=== PATIENT | female | born 1945 | race Caucasian/White ===

== ENCOUNTER 2017-03-23 13:37 | Observation (INO) | payer OTHER ==
--- NOTE | 2017-03-23 14:16 | PDOC ---
History of Present Illness - General Chief Complaint: Syncope/Near Syncope Stated Complaint: SYNCOPE Time Seen by Provider: 03/23/17 14:07 History Source: Patient Exam Limitations: No Limitations - History of Present Illness Initial Comments: 03/23/17 14:35 This is a 71 yo F with pmh of HTN and HLD, who presents s/p syncopal episode. 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 she has not have anything to eat or drink in 24 hr. When it was her turn to speak she felt nervous. Shortly into her speech, she felt a syncopal prodrome of light headedness and darkening vision and stated the she was going to pass out, at which time someone caught her in her fall. she did not sustain trauma. When she woke up she was soaked in sweat, felt nauseous and experienced one episode of nbnb vomiting. She currently feel weak, thirsty and complains of slightly blurry vision. She passed out once before in her youth after a sudden positional change. She has no cardiac history, no history of arrhythmic events but her brother has history of arrhythmias and has had several ablations. She denies palpitations, chest pain, hemoptysis, orthopnea, sob, cough, edema. She denies abd pain h/a, dysuria, diarrhea. 03/23/17 15:14 03/23/17 15:21 Past History - Travel Traveled outside of the country in the last 30 days: No Close contact w/someone who was outside of country & ill: No - Past Medical History Allergies/Adverse Reactions: Allergies Allergy/AdvReac Type Severity Reaction Status Date / Time No Known Allergies Allergy Verified 03/23/17 14:19 Review of Systems - Review of Systems Able to Perform ROS?: Yes Is the patient limited [place]se proficient: No Constitutional: No: Chills, Fever, Night Sweats, Unexplained wgt Loss HEENTM: Yes: Blurred Vision. No: Tearing, Ear Pain, Nose Congestion, Tinnitus, Throat Pain, Difficulty Swallowing Respiratory: No: Cough, Orthopnea, Shortness of Breath, Stridor, Wheezing, Hemoptysis Cardiac (ROS): Yes: Lightheadedness, Syncope. No: Chest Pain, Edema, Irregular Heart Rate, Palpitations, Chest Tightness ABD/GI: Yes: Nausea, Poor Fluid Intake, Vomiting. No: Abdominal Distended, Blood Streaked Bowels, Constipated, Diarrhea, Difficulty Swallowing, Poor Appetite, Rectal Bleeding, Abdominal cramping, Tarry Stools : No: Dysuria Musculoskeletal: No: Back Pain, Neck Pain Integumentary: No: Pallor, Pruritus, Rash Neurological: No: See HPI, Headache, Numbness, Paresthesia, Seizure, Tremors, Weakness Psychiatric: Yes: Stressors (public speaking ). No: Anxiety Endocrine: Yes: Excessive Sweating Hematologic/Lymphatic: No: Anemia, Blood Clots, Easy Bleeding, Easy Bruising All Other Systems: Reviewed and Negative *Physical Exam - Physical Exam Comments: 03/23/17 15:22 GENEREAL: AAOX3, NAD HEENT:PERRLA EOMI, l BECJ MASS AT SURGICAL SITE, NORMOCEPHALIC, ATRAUMATIC CV: RRR S1S2, GRADE 2 SYSTOLIC MURMUR GEST HEARD AT R UPPER STERNAL BOARDER PULM: CTA B/L GI:SOFT, NONTENDER, NONDISTENDED, NO MASS NEURO: CN GROSSLY INTACT MUSCULOSKELETA: NO PERIPHERAL EDEMA, NO CALF TENDERNESS Heart Score/ECG Review #1 ECG reviewed & interpreted by me at: 14:45 (L axis div, possible L atrial enlargement. poor r progression, no evidence of acs) ED Treatment Course - LABORATORY CBC & Chemistry Diagram: 03/23/17 14:55 03/23/17 14:55 Medical Decision Making - Medical Decision Making 03/23/17 15:24 patient with pmh of well controlled htn hld, present after brief witnessed syncopal episode with prodrome based on histrory and physical, this is most likely vasovagal induced by hunger , dehydration and performance anxiety ordered IVF 1L NS, cbc diff, cmp, mag, tsh, cardiac profile, trop PE: systolic murmur heard at R sternal boarder EKG: L axis div, possible L atrial enlargement. poor r progression, no evidence of acs Labs show trop 0.3 Patient meets observation criteria in telemetry 03/23/17 16:32 03/23/17 16:59 03/23/17 17:00 *DC/Admit/Observation/Transfer Diagnosis at time of Disposition: Syncopal episodes - Discharge Dispostion Admit: Yes
[2017-03-23 14:19] VITALS: BMI 21.5
[2017-03-23] MEDS ORDERED: SODIUM CHLORIDE 1,000 ML IV STA (14:45)
--- NOTE | 2017-03-23 14:50 | PDOC ---
Attending Attestation - Resident Resident Name: Liz Patricia - ED Attending Attestation I have performed the following: I have examined & evaluated the patient, The case was reviewed & discussed with the resident, I agree w/resident's findings & plan - HPI HPI: 03/23/17 17:02 71y F hx of htn, hl, presents with complaint of syncope. 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 Pt states shehas not had any real food intake since yesterday evening (skipped dinner, and had very small breakfast today) - there was no associated cp, sob, headache, vision changes, numbness/tingling/weakness, focal weakness, neck pain, back pain. Pt states she was diaphoretic an vomited alitlte when she woke up. The pt notes she syncopized once man years ago and had a workup on Velva. Pt states she also is very active, and uses her treadmill regularly without any sob/cp. Pts exam unremarakble beside 2/6 systolic murmer. vitals unremakble labs reviewed noted for borderline troponin. will place in obs for surveillance monitor and possible echo - Physicial Exam PE: 03/24/17 07:57 see above - Medical Decision Making 03/24/17 07:57 see above Heart Score/ECG Review - ECG Impressions Comment:: 03/23/17 17:05 Twelve-lead EKG was performed and reviewed by me. There is normal sinus rhythm with a normal rate. Rate of 62 Abnormal R wave progression, Q waves in III and aVF no old ekgs for comparison
[2017-03-23 15:00] LABS: BASOPHIL 0.6 % (0-2.0); MCH 31.2 pg (25.7-33.7); MCHC 33.4 g/dl (32.0-36.0); MEAN CELL VOLUME 93.5 fl (80-96); MEAN PLT VOLUME 8.7 fl (7.5-11.1); NEUTROPHILS 74.2 % (42.8-82.8); PLATELET COUNT 270 K/MM3 (134-434); RDW 13.4 % (11.6-15.6); WHITE BLOOD COUNT 6.8 K/mm3 (4.0-10.0)
--- NOTE | 2017-03-23 15:14 | EKG ---
Test Reason : Blood Pressure : / mmHG Vent. Rate : 062 BPM Atrial Rate : 062 BPM P-R Int : 170 ms QRS Dur : 084 ms QT Int : 474 ms P-R-T Axes : 050 -19 018 degrees QTc Int : 481 ms NORMAL SINUS RHYTHM POSSIBLE LEFT ATRIAL ENLARGEMENT SEPTAL INFARCT , AGE UNDETERMINED ABNORMAL ECG NO PREVIOUS ECGS AVAILABLE CLINICAL CORRELATION IS RECOMMENDED Confirmed by THADDEUS HICKEY MD ([id number]) on 03/23/2017 3:14:08 PM Referred By: Confirmed By:THADDEUS HICKEY MD
[2017-03-23 15:27] LABS: ANION GAP 11 (8-16); BILIRUBIN,TOTAL 0.6 mg/dL (0.2-1.0); CALCIUM 9.5 mg/dL (8.5-10.1); CO2 29 mmol/L (21-32); CREATININE 0.8 mg/dL (0.55-1.02); GLUCOSE,RANDOM 98 mg/dL (74-106); MAGNESIUM 2.6 mg/dL (1.8-2.4); SGOT/AST 21 U/L (15-37); SGPT/ALT 22 U/L (12-78); TOT PROT 7.1 g/dl (6.4-8.2)
[2017-03-23 15:35] LABS: ALK PHOS 48 U/L (45-117); THYROID STIMULATING HORMONE 3.22 uIU/ml (0.358-3.74)
--- NOTE | 2017-03-23 18:04 | HP ---
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, patient was helped by organizers no fall , she remained unconscious on the stage for few minutes gradually regained conciousness, felt very weak, nausea and vomited once clear liquid, patient skipped breakfast, denies ny head ache, focal weakness, chest pain, palpitation, bowel bladder incontinence or seizure activity, patient arrived to ED AOx3 no complaints, W/U shows murmur in AA, mildly elevated troponin I is being admitted for further management and evaluation., History Source: Patient - Past Medical History Cardiovascular: Yes: HTN, Hyperlipdemia - Past Surgical History Past Surgical History: Yes: - Smoking History Smoking history: Never smoked Home Medications - Allergies Allergies/Adverse Reactions: Allergies Allergy/AdvReac Type Severity Reaction Status Date / Time No Known Allergies Allergy Verified 03/23/17 14:19 - Home Medications Home Medications: Ambulatory Orders Atorvastatin Ca [Lipitor] 20 mg PO HS 03/23/17 Family Disease History - Family Disease History Family Disease History: Heart Disease: Father, Mother, Other: Brother (arrythmia ) Review of Systems - Review of Systems Constitutional: reports: Malaise Eyes: denies: Blurred Vision, Double Vision HENT: denies: Difficult Swallowing, Ear Discharge Neck: denies: Decreased ROM, Lumps Cardiovascular: denies: Chest Pain, Edema, Palpitations, Shortness of Breath Respiratory: denies: Cough, Exercise Intolerance Gastrointestinal: denies: Abdominal Pain, Bloating, Constipation Musculoskeletal: denies: Back Pain Neurological: reports: Change in LOC, Dizziness Endocrine: denies: Excessive Sweating, Flushing Hematology/Lymphatic: denies: Easily Bruised, Excessive Bleeding Physical Examination Vital Signs: Vital Signs Temperature 98 F 03/23/17 14:11 Pulse Rate 77 03/23/17 17:03 Respiratory Rate 18 03/23/17 17:03 Blood Pressure 106/58 03/23/17 17:03 O2 Sat by Pulse Oximetry (%) 97 03/23/17 17:03 Elderly F comfortable asymptomatic. HEENT: Mm dry, no anemia PERRLA, EOMI, No nystagmus NECK; No JVD No Bruit CHEST: CTA B/L CVS; S1S2 R SM in AA soft /g/r ABD: Obese non tender Bs + EXT: No edema feet, no calf tenderness, Pulses +2 INTERNATIONAL MARKETING SPECIALIST: AO X3 non focal Problem List - Problems (1) Syncopal episodes Assessment/Plan: Patient present after an episode of syncope, no cardiac symptoms, also has H/O syncope in the past considering V Cardiac murmur and mildly elevated Troponin I needs to R/O Cardiac etiology although as per presentation, patient had Neuro Cardiogenic syncope, serial, CE, ECHO, Cardiology consult, Code(s): R55 - SYNCOPE AND COLLAPSE (2) Elevated troponin I level Assessment/Plan: Most likely demand ischemia will F/U serial EKG and Trop I, Cardiology consult, ECHO, received ASA HR well controlled at present asymptomatic F/U on Telemonitor. Code(s): R74.8 - ABNORMAL LEVELS OF OTHER SERUM ENZYMES (3) Dehydration Assessment/Plan: IV hydration F/U BMP in am Code(s): E86.0 - DEHYDRATION (4) HTN (hypertension) Assessment/Plan: Well controlled Cont Home medication , patient is on Benazepril Code(s): I10 - ESSENTIAL (PRIMARY) HYPERTENSION Qualifiers: Hypertension type: essential hypertension Qualified Code(s): I10 - Essential (primary) hypertension (5) Hypercholesteremia Assessment/Plan: Cont Lipitor F/U TSH, Lipid Panel and HbA!C Code(s): E78.00 - PURE HYPERCHOLESTEROLEMIA, UNSPECIFIED
[2017-03-23] MEDS: ASPIRIN COATED 81 MG TABLET.EC PO SCH (18:08)
[2017-03-23] MEDS ORDERED: ASPIRIN COATED 81 MG TABLET.EC ONE (18:11)
[2017-03-23] MEDS: SODIUM CHLORIDE 1,000 ML IV SCH (18:18)
[2017-03-23 20:48] LABS: MAGNESIUM 2.6 mg/dL (1.8-2.4)
[2017-03-23] MEDS: ATORVASTATIN CA 40 MG TABLET (FP) PO SCH (22:20)
[2017-03-23 23:45] LABS: TROPONIN I 1.88 ng/ml (0.00-0.05)
[2017-03-24 07:28] LABS: BASOPHIL 0.6 % (0-2.0); EOSINOPHIL 4.1 % (0-4.5); MCH 32.1 pg (25.7-33.7); MCHC 34.2 g/dl (32.0-36.0); MEAN CELL VOLUME 93.8 fl (80-96); MEAN PLT VOLUME 8.9 fl (7.5-11.1); NEUTROPHILS 63.6 % (42.8-82.8); PLATELET COUNT 234 K/MM3 (134-434); RDW 13.2 % (11.6-15.6)
--- NOTE | 2017-03-24 07:53 | CON.CARD ---
Consult Consult Specialty:: Cardiology for Dr. Stafford/Jose Eduardo Referred by:: Dr. Marc Reason for Consultation:: Syncope, elevated troponin - History of Present Illness Chief Complaint: Syncope History of Present Illness: 71 year old woman with a history of HTN, HLD, admitted with syncope and found to have an elevated troponin. Pt. seen and examined this am in nad. Pt. states that she had not eaten well the past 2 days. 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 Bystanders prevented her from falling to the ground. She apparently woke up and then lost consciousness again. She does admit to diaphoresis, nausea, and vomiting associated with this event. She did have 1 prior episode of syncope years ago. Denies any chest pain, sob, palpitations. No pnd, orthopnea, or LE edema. Pt currently asymptomatic. - History Source History Provided By: Patient, Medical Record Limitations to Obtaining History: No Limitations - Past Medical History INSPECTOR TOYS: Yes: Syncope Cardio/Vascular: Yes: HTN, Hyperlipdemia - Past Surgical History Past Surgical History: Yes: - Smoking History Smoking history: Former smoker - Social History ADL: Independent History of Recent Travel: No Home Medications - Allergies Allergies/Adverse Reactions: Allergies Allergy/AdvReac Type Severity Reaction Status Date / Time No Known Allergies Allergy Verified 03/23/17 14:19 - Home Medications Home Medications: Ambulatory Orders Atorvastatin Ca [Lipitor] 20 mg PO HS 03/23/17 Benazepril/Hydrochlorothiazide [Benazepril-Hctz 20-12.5 mg Tab] 1 each PO HS 07/30 Family Disease History - Family Disease History Family Disease History: Heart Disease: Father, Mother, Other: Brother (arrythmia ) Review of Systems - Review of Systems Constitutional: reports: Diaphoresis. denies: No Symptoms, Chills, Fever, Lethargy, Loss of Appetite, Malaise, Night Sweats, Unintentional Wgt. Loss, Weakness, Other Eyes: denies: No Symptoms, Blind Spots, Blurred Vision, Double Vision, Eye Pain , Floaters, Photophobia, Recent Change in Vision, Other HENT: denies: No Symptoms, Difficult Swallowing, Ear Discharge, Ear Pain, Epistaxis, Gingival Bleeding, Hearing Loss, Mouth Swelling, Nasal Congestion, Ocular Prosthesis, Throat Pain, Toothache, Ringing in Ears, Other Neck: denies: No Symptoms, Decreased ROM, Lumps, Pain on Movement, Stiffness, Swollen Glands, Tenderness, Other Cardiovascular: denies: No Symptoms, Chest Pain, Edema, Palpitations, Shortness of Breath, Other Respiratory: denies: No Symptoms, Cough, Exercise Intolerance, Hemoptysis, Orthopnea, PND, Snoring, SOB, SOB on Exertion, Wheezing, Other Gastrointestinal: reports: Nausea, Vomiting. denies: No Symptoms, Abdominal Pain, Bloating, Constipation, Diarrhea, Dysphagia, Indigestion, Melena, Rectal Bleeding, Vomiting Blood, Other Genitourinary: denies: No Symptoms, Burning, Discharge, Dysuria, Flank Pain, Frequency, Hematuria, Incontinence, Lesions, Menses, Pain, Testicular Mass, Testicular Pain, Testicular Swelling, Urgency, Vaginal Bleeding, Other Breasts: denies: No Symptoms Reported, See HPI, Breast Implants, Discharge from Nipple, Lumps, Pain, Skin Changes, Other Musculoskeletal: denies: No Symptoms, Back Pain, Crepitus, Decreased ROM, Extremity Pain, Joint Pain, Joint Swelling, Muscle Pain, Muscle Cramps, Muscle Weakness, Other Integumentary: denies: No Symptoms, Blister, Bruising, Change in Color, Eczema, Erythema, Incision, Lesions, Lump, Pallor, Pruritis, Rash, Wound, Other Neurological: reports: Dizziness, Syncope. denies: No Symptoms, Change in LOC, Change in Speech, Confusion, Headache, Incoordination, Numbness, Parasthesia, Pre-Existing Deficit, Seizure, Tremors, Unsteady Gait, Weakness, Other Endocrine: denies: No Symptoms, Excessive Sweating, Flushing, Increased Hunger, Increased Thirst, Intolerance to Cold, Intolerance to Heat, Unexplained Weight Gain, Unexplained Weight Loss, Other Hematology/Lymphatic: denies: No Symptoms, Easily Bruised, Excessive Bleeding, Swollen Glands, Other Psychiatric: denies: No Symptoms, Altered Sleep Pattern, Anxiety, Depression, Hallucinations, Panic, Paranoia, Suicidal, Other - Risk Factors Known Risk Factors: Yes: Hypercholesterolemia, Hypertension Vital Signs: Vital Signs Temperature 98.3 F 03/23/17 18:47 Pulse Rate 68 03/24/17 06:36 Respiratory Rate 16 03/24/17 06:36 Blood Pressure 110/68 03/24/17 06:36 O2 Sat by Pulse Oximetry (%) 98 03/24/17 06:36 Constitutional: Yes: Well Nourished, No Distress, Calm Eyes: Yes: WNL, Conjunctiva Clear, EOM Intact, PERRL HENT: Yes: WNL, Atraumatic, Normocephalic Neck: Yes: WNL, Supple, Trachea Midline Respiratory: Yes: WNL, Regular, CTA Bilaterally. No: Rales, Rhonchi, Wheezes Gastrointestinal: Yes: WNL, Normal Bowel Sounds, Soft. No: Distention, Tenderness Renal/: Yes: WNL Cardiovascular: Yes: Regular Rate and Rhythm. No: Bradycardia, Tachycardia, Pulse Irregular, Gallop, Rub, Varicosities JVD: No Carotid Bruit: No PMI: Non-Displaced Heart Sounds: Yes: S1, S2. No: Split S2, S3, S4, Clicks, Gallop, Rub, Bruit Murmur: Yes: Systolic Murmur, Grade 2. No: Diastolic Murmur Musculoskeletal: Yes: WNL Extremities: Yes: WNL Edema: No Peripheral Pulses WNL: Yes Peripheral Pulses: 2+ Left Doralis Pedis, 2+ Right Dorsalis Pedis Integumentary: Yes: WNL Neurological: Yes: WNL, Alert, Oriented, Cran Nerves II-XII Intact ...Motor Strength: WNL Psychiatric: Yes: WNL, Alert, Oriented - Other Data Labs, Other Data: CBC, BMP 03/24/17 06:10 Troponin, BNP 03/23/17 22:30 Troponin I 1.88 H* Troponin, BNP 03/23/17 22:30 Troponin I 1.88 H* ekg-NSR 69bpm, poor R progression, T inversion V2 Echo: Pending Imaging - Results Chest X-ray: Report Reviewed, Image Reviewed EKG: Report Reviewed, Image Reviewed Other: Report Reviewed, Image Reviewed (tele-no events recorded overnight) Assessment/Plan 71 year old woman with a history of HTN, HLD, admitted with syncope and found to have an elevated troponin. Syncopal episode with elevated troponin-unclear etiology, need to monitor for ACS, consider CVA (can also cause elevated troponin) -cont tele monitoring -f/up repeat cardiac enzymes, if troponin still trending up would start full dose heparin gtt -monitor serial ekgs -check echo -head CT was ordered and results appreciated, nonspecific L temporal lobe hypoattenuation, MRI was suggested -recc Neuro consult for possible CVA -consider pulmonary embolism (can cause elevated troponin and syncope) will order CTA chest -cont ASA and Lipitor -depending on clinical course and results of above work up will likely need additional ischemic work up prior to discharge either with stress test or cardiac cath, will keep NPO after midnight tonight for possible test tomorrow Elevated troponin -work up as above HTN-low normal -hold anti-HTN meds for now
[2017-03-24 08:29] LABS: ALBUMIN 3.2 g/dl (3.4-5.0); ANION GAP 11 (8-16); CALCIUM 8.9 mg/dL (8.5-10.1); CO2 27 mmol/L (21-32); COCKROFT - GAULT 61.3785; CREATININE 0.7 mg/dL (0.55-1.02); GLUCOSE,RANDOM 84 mg/dL (74-106); SGOT/AST 24 U/L (15-37); SGPT/ALT 20 U/L (12-78)
[2017-03-24 08:31] LABS: ALK PHOS 43 U/L (45-117); BILIRUBIN,TOTAL 0.9 mg/dL (0.2-1.0)
[2017-03-24] MEDS ORDERED: HEPARIN NA (PORCINE) 5,000 UNITS/ML 1ML VIAL IVPUSH PRN ×2 (08:59)
[2017-03-24] MEDS ORDERED: HEPARIN - 25,000 UNIT in SODIUM CHLORIDE 495 ML IV SCH (09:00)
[2017-03-24 09:07] LABS: TROPONIN I 0.91 ng/ml (0.00-0.05)
--- NOTE | 2017-03-24 09:08 | ED.PROV ---
Physicial Exam I saw and examined the patient. - Vital Signs Last Vital Signs Temp Pulse Resp BP Pulse Ox 98.3 F 68 16 110/68 98 03/23/17 18:47 03/24/17 06:36 03/24/17 06:36 03/24/17 06:36 03/24/17 06:36 Critical Care Time/MDM Note - Medical Decision Making Note: 03/24/17 09:07 Received phone call from radiologist Dr. Covarrubias Noted on CT head to have left temporal lesion I had received this information and alerted gale Nguyễn with the results. She is now aware.
[2017-03-24 11:21] LABS: INR 0.98 (0.82-1.09); PROTHROMBIN TIME (PATIENT) 10.8 SEC (9.98-11.88)
[2017-03-24 11:24] LABS: ACTIVATED PTT 29.9 SECONDS (26.9-34.4)
[2017-03-24] MEDS: ASPIRIN COATED 81 MG TABLET.EC PO SCH (11:27)
[2017-03-24] MEDS ORDERED: ASPIRIN COATED 81 MG TABLET.EC ONE (11:29)
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
--- NOTE | 2017-03-24 13:06 | PN ---
Progress Note (short form) - Note Progress Note: Subjective: The patient was seen and examined in the ED. She denies dizziness or nausea. She reports she had the syncopal episode after not eating or drinking for about 24 hours. She states she has also been under a lot of stress and anxiety lately because she recently had a close friend . Current Medications Generic Name Dose Route Start Last Admin Trade Name Wilmer PRN Reason Stop Dose Admin Aspirin 81 mg 03/23/17 18:00 03/24/17 11:27 Ecotrin - PO 81 mg DAILY SAYDA Administration Atorvastatin Calcium 40 mg 03/23/17 22:00 03/23/17 22:20 Lipitor - PO 40 mg HS SAYDA Administration Heparin Sodium (Porcine) 1,000 unit 03/24/17 08:59 Heparin - IVPUSH PRN PRN Heparin Heparin Sodium (Porcine) 5,000 unit 03/24/17 08:59 Heparin - IVPUSH PRN PRN Heparin Sodium Chloride 1,000 mls @ 83 mls/hr 03/23/17 18:15 03/23/17 18:18 Normal Saline - IV 83 mls/hr ASDIR SAYDA Administration Objective: Vital Signs Period Temp Pulse Resp BP Sys/Byers Pulse Ox Last 24 Hr 98 F-98.3 F 60-84 16-18 92-110/54-68 97-100 Physical Exam: General: NAD, A&Ox3 Lungs: CTA bilaterally Heart: RRR, S1S2 Abd: Soft, non-tender, non-distended. Normoactive bowel sounds Ext: Warm, well-perfused. 2+ DP/PT bilaterally Neuro: CN 2-12 intact CBCD WBC 6.0 K/mm3 (4.0-10.0) 03/24/17 06:10 RBC 3.86 M/mm3 (3.60-5.2) 03/24/17 06:10 Hgb 12.4 GM/dL (10.7-15.3) 03/24/17 06:10 Hct 36.2 % (32.4-45.2) 03/24/17 06:10 MCV 93.8 fl (80-96) 03/24/17 06:10 MCHC 34.2 g/dl (32.0-36.0) 03/24/17 06:10 RDW 13.2 % (11.6-15.6) 03/24/17 06:10 Plt Count 234 K/MM3 (134-434) 03/24/17 06:10 MPV 8.9 fl (7.5-11.1) 03/24/17 06:10 CMP Sodium 139 mmol/L (136-145) 03/24/17 06:10 Potassium 3.9 mmol/L (3.5-5.1) 03/24/17 06:10 Chloride 101 mmol/L (98-107) 03/24/17 06:10 Carbon Dioxide 27 mmol/L (21-32) 03/24/17 06:10 Anion Gap 11 (8-16) 03/24/17 06:10 BUN 15 mg/dL (7-18) D 03/24/17 06:10 Creatinine 0.7 mg/dL (0.55-1.02) 03/24/17 06:10 Creat Clearance w eGFR > 60 (>60) 03/24/17 06:10 Random Glucose 84 mg/dL (74-106) 03/24/17 06:10 Calcium 8.9 mg/dL (8.5-10.1) 03/24/17 06:10 Total Bilirubin 0.9 mg/dL (0.2-1.0) D 03/24/17 06:10 AST 24 U/L (15-37) 03/24/17 06:10 ALT 20 U/L (12-78) 03/24/17 06:10 Alkaline Phosphatase 43 U/L (45-117) L 03/24/17 06:10 Total Protein 6.0 g/dl (6.4-8.2) L 03/24/17 06:10 Albumin 3.2 g/dl (3.4-5.0) L 03/24/17 06:10 CARDIAC ENZYMES Creatine Kinase 137 IU/L (26-192) 03/24/17 06:10 Troponin I 0.91 ng/ml (0.00-0.05) H* 03/24/17 06:10 Assessment: This is a 71 year old female with PMHx of HTN, hyperlipidemia, head trauma (5 and 7 years ago) who presented to the ED with syncope. Plan: 1) Syncope with elevated troponin - Elevated troponins, trending down, no chest pain - Discussed with cardiology, will defer starting Heparin gtt for now as trops trended down - Monitor serial EKGs - Continue ASA - Continue Lipitor - Pulmonary embolism ruled out with CTA (can cause syncope and elevation in trops) - F/u ECHO - F/u orthostatic vital signs - NPO after midnight for possible stress test tomorrow - Appreciate cardiology consult 2) 2cm left temporal lobe lesion - Noted on head CT and brain MRI without contrast. Mild edema noted, no mass effect - F/u MRI with contrast - Discussed surrounding brain edema noted on MRI with Dr. 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 - New Patient This patient is new to me today: Yes Date on this admission: 03/24/17 - Critical Care Critical Care patient: No
--- NOTE | 2017-03-24 15:06 | PN ---
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 The patient relates that she had not eaten or taken p.o. liquids prior to the speech. due to being emotionally upset from the news of a close friend having . Patient has a negative P.E. Had a negative mammogram within the past year, and a colonoscopy 6 years earlier. Chemistries and CBC - unremarkable. Will need contrast enhanced MRI of brain . Further work up pending above.
--- NOTE | 2017-03-24 15:30 | EKG ---
Test Reason : Blood Pressure : / mmHG Vent. Rate : 069 BPM Atrial Rate : 069 BPM P-R Int : 164 ms QRS Dur : 090 ms QT Int : 454 ms P-R-T Axes : 035 -16 022 degrees QTc Int : 486 ms NORMAL SINUS RHYTHM LOW VOLTAGE QRS CANNOT RULE OUT ANTEROSEPTAL INFARCT (CITED ON OR BEFORE 23-MAR-2017) ABNORMAL ECG WHEN COMPARED WITH ECG OF 23-MAR-2017 14:45, QUESTIONABLE CHANGE IN INITIAL FORCES OF ANTERIOR LEADS T WAVE INVERSION NOW EVIDENT IN ANTERIOR LEADS CLINICAL CORRELATION IS RECOMMENDED Confirmed by RUPERTO GALLEGOS, THADDEUS ([id number]) on 03/24/2017 3:30:36 PM Referred By: Confirmed By:THADDEUS HICKEY MD
--- NOTE | 2017-03-24 16:51 | CONS ---
DATE OF CONSULTATION: 03/24/2017 This 71-year-old female enters after a syncopal episode. She is noted to have an elevation of troponin. 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 SOCIAL HISTORY: The patient is for 50 years, has 2 children. Formerly smoked, from a teenager on and off up until 30 years ago, less than a pack per day. Does not drink, does not take drugs. 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 No industrial exposures or intoxicants. FAMILY HISTORY: Includes a father who of prostate cancer, mother who of strokes, and a brother with prostate cancer. There is 1 aunt, maternal, who had breast cancer. PAST MEDICAL HISTORY: Positive for hypertension and hypercholesterolemia. No history of stroke, hepatitis, WI, gallbladder disease, thyroid disease, kidney disease, gout, or TB. SURGICAL HISTORY: Status post section. No known allergies. Medicines include aspirin 81, Lipitor 40, heparin 5000 b.i.d. REVIEW OF SYSTEMS: No headaches. Previously had a mild headache. No double vision; blurry vision; nose bleeds; epistaxis; dysphagia; chest pain; shortness of breath; difficulty breathing; GI problems with nausea, vomiting, diarrhea, constipation, melena; problems with dysuria, hematuria, pyuria. No vaginal bleeding or discharge. No back or bone pain. No lower extremity numbness or tingling. Patient has annual mammograms, last within the past year and no evidence of disease. Prior benign breast biopsies. Had colonoscopy 6 years earlier. CURRENT PHYSICAL EXAMINATION: Vital Signs: BP 108/68, pulse 68, respiratory rate 18, afebrile. HEENT: FEI, EOM intact. Oropharynx unremarkable. Neck: Supple. No thyromegaly. No cervical or supraclavicular nodes. No axillary nodes. Breasts: No masses. No dimpling or discharge. Cardiac: RSR. Abdomen: Soft. No organomegaly or masses. Extremities: No significant edema. LABORATORY: WBC 6.0, hematocrit 39.8, now 36.2, platelets 234, polys 64, lymphs 25, monos 7. INR 0.98, PTT 29.9. Sodium 139, K 3.9, chloride 101, CO2 27, BUN 15, creatinine 0.7, AST 24, ALT 20, alkaline phosphatase 43. CPK 137. Troponin 1.88, now 0.9. TSH pending. Triglycerides 93, cholesterol 148, LDL 90. Chest x-ray: No infiltrate. MRI with 2 x 1.3 cm focus in the left temporal lobe. In addition, a saccular aneurysm in the posterior communicating system. IMPRESSION: Left temporal mass measuring 2 x 1.3, associated edema. Patient will require MRI with contrast. Chest CT: No obvious masses. No obvious pulmonary emboli. Patient had syncopal episode and to be evaluated further for same. ELIOT ESPINOSA M.D. MARIBEL/[id number]
[2017-03-24] MEDS: SODIUM CHLORIDE 1,000 ML IV SCH (22:09)
[2017-03-24] MEDS: ATORVASTATIN CA 40 MG TABLET (FP) PO SCH (22:10)
[2017-03-24] MEDS: HEPARIN NA (PORCINE) 5,000 UNITS/ML 1ML VIAL SQ SCH (22:10)
--- NOTE | 2017-03-25 08:12 | PN ---
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 She remained unconscious on the stage for few minutes and gradually regained consciousness. Experienced nausea and vomited once. Denies H/A, focal weakness, numbness, fever, chill, chest pain, palpitation, bowel/bladder incontinence. Found with murmur with mildly elevated troponin. No recent infection. PE: 97.8, AF, VSS HEENT- NC, AT; Neck- supple, no bruit; Cor- regular; Lungs- CTA B; Abd- benign, + BS; Ext- no sign of DVT A/A/Ox4 CN- intact II-XII; Motor- 5/5 without drift; Sensation- intact LT/vibration; DTR - 2+ except B ankles diminished Head CT- L anterior temporal cystic lesion with minimal edema'; mild periventricular small vessel dz Brain MRI w/ and w/o- L anterior temporal 1.5 x 2.5 cm thicker rim enhancing lesion with mild associated vasogenic edema; mild periventricular small vessel disease with minimal atrophy MRA- equivocal small 3 mm L PCOM aneurysm Chest CTA- negative for PE INR 0.98 Troponin 0.28-1.88-0.91 Probable L anterior temporal GBM with Sz activity > solitary met >> inflammatory dz/abscess - would likely need tissue diagnosis and debluking for optimal outcome (this is a surgically accessible location for optimal resection) , after stabilization of cardiac condition Asymptomatic L pCOM 3mm aneurysm- observation and serial MRA unless increased severe H/A or CN III dysfunction Cardiac eval to r/o ischemia Asterra for sz prophylaxis Recommend CT abd/pelvis with contrast to t/o primary disease, though doubt it Pros and cons of treatment approaches discussed will be in this morning to discuss condition and treatment options further
[2017-03-25 10:03] LABS: BASOPHIL 0.8 % (0-2.0); EOSINOPHIL 5.9 % (0-4.5); MCH 31.6 pg (25.7-33.7); MCHC 33.3 g/dl (32.0-36.0); MEAN CELL VOLUME 94.8 fl (80-96); MEAN PLT VOLUME 8.4 fl (7.5-11.1); NEUTROPHILS 63.6 % (42.8-82.8); PLATELET COUNT 249 K/MM3 (134-434); RDW 13.8 % (11.6-15.6)
[2017-03-25 10:23] LABS: ALBUMIN 3.5 g/dl (3.4-5.0); ANION GAP 8 (8-16); CALCIUM 8.9 mg/dL (8.5-10.1); CO2 28 mmol/L (21-32); GLUCOSE,RANDOM 82 mg/dL (74-106)
[2017-03-25 10:26] LABS: ALK PHOS 42 U/L (45-117); BILIRUBIN,TOTAL 0.6 mg/dL (0.2-1.0); COCKROFT - GAULT 61.3785; CREATININE 0.7 mg/dL (0.55-1.02); SGOT/AST 24 U/L (15-37); SGPT/ALT 19 U/L (12-78); TOT PROT 6.2 g/dl (6.4-8.2)
[2017-03-25 10:59] LABS: TROPONIN I 0.14 ng/ml (0.00-0.05)
--- NOTE | 2017-03-25 11:00 | CONS ---
DATE OF CONSULTATION: 03/25/2017 CHIEF COMPLAINT: Syncope. HISTORY OF PRESENT ILLNESS: The patient is a 71-year-old right-handed female with a history of hypertension and hypercholesterolemia who complains of a sudden onset syncopal episode in the middle of making a speech this past Saturday. She was making a speech at [employer] commencement ceremony. She felt dizzy and started to lose consciousness and was caught by another person before falling. She had some nausea and vomiting x1 afterwards. She had no headache. She denies weakness or any numbness of extremities. She had no generalized tonic clonic movements and denies any recent fever or chills. She had no recent infection. There is no history of primary systemic malignancy. She was neurologically normal in the emergency room. PAST MEDICAL HISTORY: Significant for hypertension, hypercholesterolemia as well as a syncopal episode about 10 years ago after which she had a carotid Doppler study, which was reportedly negative. CURRENT MEDICATIONS: Include subcutaneous heparin, Lipitor, baby aspirin. ALLERGIES: There are no drug allergies. FAMILY HISTORY: Significant for cardiac arrhythmia in her brother and hypertension and stroke in her mother. 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 She lives at home with her and has 2 children. REVIEW OF SYSTEMS: Otherwise negative for other major cardiovascular, pulmonary , gastrointestinal, genitourinary, endocrinologic, neurologic, or psychological problems. She did undergo for the childbirth of her 2 children. PHYSICAL EXAMINATION: Vital Signs: Temperature 97.8, blood pressure 123/76 with O2 saturation 95%. HEENT: Shows her to be normocephalic, atraumatic, anicteric. Neck: Supple with no carotid bruits. Coronary: Demonstrates regular rhythm. Lungs: Clear bilaterally. Abdomen: Benign. Extremities: Shows no signs of DVT. Distal pulses are 1 to 2+ and symmetric. Neurologic: She is awake, alert, and oriented x4. Cranial nerve examination is intact 2-12. Motor examination shows 5/5 strength without drift. Sensory examination is intact to light touch and vibratory sensation. Deep tendon reflexes 2+ throughout except for bilateral ankles, which are diminished. There is no pathological long tract sign. Gait is not tested for safety reasons. Cerebellar examination demonstrating intact [id number] examination. She has good coordination. LABORATORY EXAMINATION: Shows white blood cell count 6000, hemoglobin 12.4, platelet count 234,000, INR 0.98, and PTT 29.9. Serum sodium 139, potassium 3.9, BUN 15, creatinine 0.7. Troponin initially was 0.28, which increased to 1.88 and decreased to 0.91 subsequently. CTA of the chest is negative for pulmonary embolism or obvious aortic dissection. There is bibasilar atelectasis. CT scan of the head demonstrated left anterior temporal hypodensity. There is also mild periventricular small vessel disease. MRI of the brain demonstrated left anterior temporal 2.5-cm x 1.5-cm heterogeneously rim-enhancing lesion with thicker rim-enhancing lesion with mild associated edema. There is no other significant enhancing lesion noted. MRA of the brain demonstrated a small 3-mm borderline posterior communicating aneurysm. IMPRESSION: 1. 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 2. Hypertension. 3. Hypercholesterolemia. 4. Elevated cardiac enzymes undergoing evaluation. RECOMMENDATIONS: The patient presents with syncopal episodes. She has a left anterior temporal lesion, which could be epileptogenic. I would recommend starting her on Keppra 500 mg p.o. b.i.d. if not medically contraindicated. This is for seizure prophylaxis. There is a left anterior temporal lesion that has mild associated edema and is rim enhancing. The appearance is most consistent with that of a glioblastoma. There is also a possibility this may be solitary metastasis , but this does appear to be a neoplasm. Further metastatic evaluation including a CT scan of the abdomen with and without is recommended. Concurrent cardiac evaluation is ongoing and includes an echocardiogram as well as a nuclear stress test by report. At some point in time, both diagnostic and possible surgical debulking of the lesion of this left anterior temporal lesion is recommended. This will probably offer the diagnosis and the most favorable outcome in the intermediate and longer term. The pros and cons and treatment approaches of brain lesion was discussed with the patient. The aneurysm in the left posterior communicating region is small and less than 7 mm, and risk of bleeding is less than 0.1% per year. This could be followed with serial MRA examinations in the future. Obviously, if the patient develops severe headache or diplopia or pupillary dilatation on the left side, intervention will be recommended obviously at this point. The patient appears to be asymptomatic from the aneurysm at this time. All questions were answered at bedside. The pros and cons and treatment approaches were discussed with for both conditions. RAUL CATHERINE M.D. ALICIA/[id number] MTDD
[2017-03-25] MEDS: ASPIRIN COATED 81 MG TABLET.EC PO SCH (11:10)
[2017-03-25] MEDS: HEPARIN NA (PORCINE) 5,000 UNITS/ML 1ML VIAL SQ SCH ×2 (11:10→21:55)
[2017-03-25] MEDS: levETIRAcetam 500 MG TABLET (FP) PO SCH ×2 (12:03→21:55)
--- NOTE | 2017-03-25 14:02 | EKG ---
Test Reason : Blood Pressure : / mmHG Vent. Rate : 066 BPM Atrial Rate : 066 BPM P-R Int : 160 ms QRS Dur : 084 ms QT Int : 510 ms P-R-T Axes : 042 -14 038 degrees QTc Int : 534 ms NORMAL SINUS RHYTHM PROLONGED QT T WAVE ABNORMALITY, CONSIDER ANTERIOR ISCHEMIA ABNORMAL ECG WHEN COMPARED WITH ECG OF 24-MAR-2017 06:28, T WAVE INVERSION APPEARS MORE PROMINENT Confirmed by CELIA AMIN MD ([id number]) on 03/25/2017 2:02:00 PM Referred By: WHIT MO Confirmed By:CELIA AMIN MD
--- NOTE | 2017-03-25 14:54 | PN ---
Progress Note, Physician History of Present Illness: 71 year old woman with a history of HTN, HLD, admitted with syncope and found to have an elevated troponin. Pt. seen and examined this am in nad. Pt. states that she had not eaten well the past 2 days. 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 Bystanders prevented her from falling to the ground. She apparently woke up and then lost consciousness again. She does admit to diaphoresis, nausea, and vomiting associated with this event. She did have 1 prior episode of syncope years ago. Denies any chest pain, sob, palpitations. No pnd, orthopnea, or LE edema. Pt currently asymptomatic. - Current Medication List Current Medications: Active Medications Aspirin (Ecotrin -) 81 mg PO DAILY [facility] Last Admin: 03/25/17 11:10 Dose: 81 mg Atorvastatin Calcium (Lipitor -) 40 mg PO HS [facility] Last Admin: 03/24/17 22:10 Dose: 40 mg Heparin Sodium (Porcine) (Heparin -) 5,000 unit SQ BID [facility] Last Admin: 03/25/17 11:10 Dose: 5,000 unit Sodium Chloride (Normal Saline -) 1,000 mls @ 83 mls/hr IV ASDIR [facility] [place] Last Admin: 03/24/17 22:09 Dose: 83 mls/hr Levetiracetam (Keppra -) 500 mg PO BID [facility] Last Admin: 03/25/17 12:03 Dose: 500 mg - Objective Vital Signs: Vital Signs Temperature 98 F 03/25/17 10:00 Pulse Rate 76 03/25/17 10:00 Respiratory Rate 18 03/25/17 10:00 Blood Pressure 130/86 03/25/17 10:00 O2 Sat by Pulse Oximetry (%) 98 03/25/17 09:00 Eyes: Yes: WNL, Conjunctiva Clear, EOM Intact HENT: Yes: WNL, Atraumatic, Normocephalic Neck: Yes: WNL, Supple, Trachea Midline Cardiovascular: Yes: WNL, Regular Rate and Rhythm Respiratory: Yes: WNL, Regular, CTA Bilaterally Gastrointestinal: Yes: WNL, Normal Bowel Sounds Genitourinary: Yes: WNL Musculoskeletal: Yes: WNL Extremities: Yes: WNL Edema: No Integumentary: Yes: WNL Neurological: Yes: WNL, Alert, Oriented ...Motor Strength: WNL Psychiatric: Yes: WNL Labs: CBC, BMP 03/25/17 09:30 03/25/17 09:30 INR, PTT INR 0.98 (0.82-1.09) 03/24/17 10:43 Problem List - Problems (1) Dehydration Code(s): E86.0 - DEHYDRATION (2) Elevated troponin I level Code(s): R74.8 - ABNORMAL LEVELS OF OTHER SERUM ENZYMES (3) HTN (hypertension) Code(s): I10 - ESSENTIAL (PRIMARY) HYPERTENSION Qualifiers: Hypertension type: essential hypertension Qualified Code(s): I10 - Essential (primary) hypertension (4) Hypercholesteremia Code(s): E78.00 - PURE HYPERCHOLESTEROLEMIA, UNSPECIFIED (5) Syncopal episodes Code(s): R55 - SYNCOPE AND COLLAPSE Assessment/Plan 71 year old woman with a history of HTN, HLD, admitted with syncope and found to have an elevated troponin. Syncopal episode with elevated troponin-unclear etiology, need to monitor for ACS, consider CVA (can also cause elevated troponin) -cont tele monitoring -head CT shoved solitary brain lesion glioblastoma? vs solitary met. -consider pulmonary embolism (can cause elevated troponin and syncope) will order CTA chest -cont ASA and Lipitor -depending on clinical course and results of above work up will likely need additional ischemic work up prior to discharge either with stress test or cardiac cath, will keep NPO after midnight tonight for possible test tomorrow Elevated troponin -work up as above HTN-low normal -hold anti-HTN meds for now
--- NOTE | 2017-03-25 16:44 | PN ---
Physical Exam: SUBJECTIVE: Patient seen and examined with her at the bedside. Both are eager to address the probable glioblastoma with a neurosurgeon follow up in [place] tomorrow @ 10a.m. Patient wants to leave AMA but has agreed to stay overnight so that we can continue to trend her troponins and monitor her on tele. Patient wants second opinion for new found probable glioblastoma OBJECTIVE: PT evaluation Troponin mildly elevated, will need clearance from cardiology prior to d/c Patient aware that cardiology has not cleared her and wants to leave AMA today but in agreement to have her troponins trended as well as continue tele- monitoring overnight Risks of leaving AMA discussed with patient. Vital Signs Period Temp Pulse Resp BP Sys/Byers Pulse Ox Last 24 Hr 97.8 F-98.8 F 63-78 16-20 102-130/58-88 95-98 GENERAL: The patient is awake, alert, and fully oriented, in no acute distress. HEAD: Normal with no signs of trauma. EYES: PERRL, extraocular movements intact, sclera anicteric, conjunctiva clear. No ptosis. ENT: Ears normal, nares patent, oropharynx clear without exudates, moist mucous membranes. NECK: Trachea midline, full range of motion, supple. LUNGS: Breath sounds equal, clear to auscultation bilaterally, no wheezes, no crackles, no accessory muscle use. ABDOMEN: Soft, nontender, nondistended, normoactive bowel sounds, no guarding, no rebound, no hepatosplenomegaly, no masses. EXTREMITIES: 2+ pulses, warm, well-perfused, no edema. NEUROLOGICAL: Normal speech, gait not observed. PSYCH: Normal mood, normal affect. SKIN: Warm, dry, normal turgor, no rashes or lesions noted Laboratory Results - last 24 hr 03/25/17 03/25/17 03/25/17 09:30 09:30 09:30 WBC 5.0 RBC 4.10 Hgb 12.9 Hct 38.8 MCV 94.8 MCHC 33.3 RDW 13.8 Plt Count 249 MPV 8.4 Neutrophils % 63.6 Lymphocytes % 20.3 Monocytes % 9.4 Eosinophils % 5.9 H Basophils % 0.8 Sodium 143 Potassium 3.9 Chloride 107 Carbon Dioxide 28 Anion Gap 8 BUN 12 Creatinine 0.7 Creat Clearance w eGFR > 60 Random Glucose 82 Calcium 8.9 Total Bilirubin 0.6 D AST 24 ALT 19 Alkaline Phosphatase 42 L Troponin I 0.14 H Cancelled Total Protein 6.2 L Albumin 3.5 Active Medications Generic Name Dose Route Start Last Admin Trade Name Wilmer PRN Reason Stop Dose Admin Aspirin 81 mg 03/23/17 18:00 03/25/17 11:10 Ecotrin - PO 81 mg DAILY SAYDA Administration Atorvastatin Calcium 40 mg 03/23/17 22:00 03/24/17 22:10 Lipitor - PO 40 mg HS SAYDA Administration Heparin Sodium (Porcine) 5,000 unit 03/24/17 22:00 03/25/17 11:10 Heparin - SQ 5,000 unit BID SAYDA Administration Sodium Chloride 1,000 mls @ 83 mls/hr 03/23/17 18:15 03/24/17 22:09 Normal Saline - IV 83 mls/hr ASDIR SAYDA Administration Levetiracetam 500 mg 03/25/17 11:45 03/25/17 12:03 Keppra - PO 500 mg BID SAYDA Administration ASSESSMENT/PLAN: Patient is a 71 year old female with a significant past medical history of hypertension and hyperlipidemia. 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 Bystanders reportedly prevented her from falling to the ground. She apparently woke up and then lost consciousness again. She does not recall the syncopal episode. She denies chest pain, shortness of breath or lightheadedness. Neurology: Syncopal episode - acute Assessment/Plan: Seizure? Keppra 500mg BID prophylactically Brain MRI with 2cm left temporal lobe lesion Neurosurgery notes reviewed Patient is getting 2nd opinion with neurosurgeon tomorrow in [place] Followed by Neuro Cardiology: Rule out ACS Assessment/Plan: Syncopal episode with elevated consider CVA (can also cause elevated troponin) -cont tele monitoring Troponins trending down Will continue to trend to document peak Continue on ASA 81mg daily Monitor on tele CTA negative for PE On Lipitor Echo pending F.E.N. Fluids: tolerating PO Electrolytes: within normal limites Nutrition: low sodium diet Prophylaxis: GI: deferred DVT: SCDs bilaterally Disposition: Full Code. Visit type - Emergency Visit Emergency Visit: Yes ED Registration Date: 03/23/17 Care time: The patient presented to the Emergency Department on the above date and was hospitalized for further evaluation of their emergent condition. - New Patient This patient is new to me today: Yes Date on this admission: 03/26/17 - Critical Care Critical Care patient: No - Discharge Referral Referred to [facility] Med P.C.: No
[2017-03-25] MEDS: ATORVASTATIN CA 40 MG TABLET (FP) PO SCH (21:55)
--- NOTE | 2017-03-25 22:40 | PN ---
Progress Note (short form) - Note Progress Note: Patient seen and examined Danielle CHINCHILLA Denies any complaints AFVSS Cor: RSR, No murmurs, No gallops Lungs: Clear to P&A Abd: Soft, Normal bowel sounds, No organomegaly Ext:No significant edema Labs/Meds reviewed A/P 71 y/o patient with solitary brain lesion CT scans c/a/p were unrevealing suspect primary brain neoplasm management per neurosurgery
[2017-03-26 05:57] VITALS: BP 114/80; PULSE 76; TEMP 97.8
[2017-03-26 07:01] LABS: BASOPHIL 0.9 % (0-2.0); EOSINOPHIL 8.8 % (0-4.5); MCH 31.9 pg (25.7-33.7); MEAN CELL VOLUME 93.9 fl (80-96); MEAN PLT VOLUME 9.1 fl (7.5-11.1); NEUTROPHILS 60.6 % (42.8-82.8); PLATELET COUNT 251 K/MM3 (134-434); RDW 13.7 % (11.6-15.6); WHITE BLOOD COUNT 7.7 K/mm3 (4.0-10.0)
[2017-03-26 07:33] LABS: ALBUMIN 3.4 g/dl (3.4-5.0); ANION GAP 9 (8-16); BILIRUBIN,TOTAL 0.7 mg/dL (0.2-1.0); CO2 27 mmol/L (21-32); COCKROFT - GAULT 61.3785; CREATININE 0.7 mg/dL (0.55-1.02); GLUCOSE,RANDOM 77 mg/dL (74-106); SGOT/AST 21 U/L (15-37); SGPT/ALT 19 U/L (12-78); TOT PROT 6.2 g/dl (6.4-8.2)
--- NOTE | 2017-03-26 07:36 | PN ---
Progress Note (short form) - Note Progress Note: NEUROSURGERY No H/A, N/V PE: 97.8, AF, VSS HEENT- NC, AT; Neck- supple, no bruit; Cor- regular; Lungs- CTA B; Abd- benign, + BS; Ext- no sign of DVT A/A/Ox4 CN- intact II-XII; Motor- 5/5 without drift; Sensation- intact LT/vibration; DTR - 2+ except B ankles diminished Head CT- L anterior temporal cystic lesion with minimal edema'; mild periventricular small vessel dz Brain MRI - L anterior temporal 1.5 x 2.5 cm thick rim enhancing lesion with mild associated vasogenic edema; mild periventricular small vessel disease with minimal atrophy MRA- equivocal small 3 mm L PCOM aneurysm Chest CTA- negative for PE CT abd- no mass, renal cyst Cardiac Echo- normal LV function, mild diastolic dysfunction Probable L anterior temporal GBM with Sz activity > solitary met >> inflammatory dz/abscess - would likely need tissue diagnosis and debluking for optimal outcome (this is a surgically accessible location for optimal resection) , as it appears that cardiac condition is stable Asymptomatic L pCOM 3mm aneurysm- observation and annual MRA unless SAH or CN III dysfunction Keppra for sz prophylaxis Pros and cons of treatment approaches for both conditions above discussed in detail Pt and aware that intervention in the near term (within a couple weeks) is highly recommended otherwise the tumor can progress will be in this morning to discuss condition and treatment options further
[2017-03-26 07:37] LABS: ALK PHOS 44 U/L (45-117); TROPONIN I 0.06 ng/ml (0.00-0.05)
--- NOTE | 2017-03-26 07:47 | DS ---
Physical Exam: SUBJECTIVE: Patient seen and examined. She is adamantly refusing to stay in the hospital for further workup. Asking for AMA paper work. OBJECTIVE: Leaving AMA, pt aware of risks which include sudden , syncope See below Vital Signs Period Temp Pulse Resp BP Sys/Byers Pulse Ox Last 24 Hr 97.5 F-98.0 F 72-83 16-20 104-130/58-88 97-98 PHYSICAL EXAM GENERAL: The patient is awake, alert, and fully oriented, in no acute distress. HEAD: Normal with no signs of trauma. EYES: PERRL, extraocular movements intact, sclera anicteric, conjunctiva clear. No ptosis. ENT: Ears normal, nares patent, oropharynx clear without exudates, moist mucous membranes. NECK: Trachea midline, full range of motion, supple. LUNGS: Breath sounds equal, clear to auscultation bilaterally, no wheezes, no crackles, no accessory muscle use. ABDOMEN: Soft, nontender, nondistended, normoactive bowel sounds, no guarding, no rebound, no hepatosplenomegaly, no masses. EXTREMITIES: 2+ pulses, warm, well-perfused, no edema. NEUROLOGICAL: Normal speech, gait not observed. PSYCH: Normal mood, normal affect. SKIN: Warm, dry, normal turgor, no rashes or lesions noted LABS Laboratory Results - last 24 hr 03/25/17 03/25/17 03/25/17 09:30 09:30 09:30 WBC 5.0 RBC 4.10 Hgb 12.9 Hct 38.8 MCV 94.8 MCHC 33.3 RDW 13.8 Plt Count 249 MPV 8.4 Neutrophils % 63.6 Lymphocytes % 20.3 Monocytes % 9.4 Eosinophils % 5.9 H Basophils % 0.8 PTT (Actin FS) Sodium 143 Potassium 3.9 Chloride 107 Carbon Dioxide 28 Anion Gap 8 BUN 12 Creatinine 0.7 Creat Clearance w eGFR > 60 Random Glucose 82 Calcium 8.9 Total Bilirubin 0.6 D AST 24 ALT 19 Alkaline Phosphatase 42 L Troponin I 0.14 H Cancelled Total Protein 6.2 L Albumin 3.5 03/25/17 03/25/17 03/26/17 18:15 21:34 05:35 WBC RBC Hgb Hct MCV MCHC RDW Plt Count MPV Neutrophils % Lymphocytes % Monocytes % Eosinophils % Basophils % PTT (Actin FS) 30.3 Sodium Potassium Chloride Carbon Dioxide Anion Gap BUN Creatinine Creat Clearance w eGFR Random Glucose Calcium Total Bilirubin AST ALT Alkaline Phosphatase Troponin I 0.08 H 0.09 H Total Protein Albumin 03/26/17 03/26/17 05:35 05:35 WBC 7.7 D RBC 4.26 Hgb 13.6 Hct 40.0 MCV 93.9 MCHC 34.0 RDW 13.7 Plt Count 251 MPV 9.1 Neutrophils % 60.6 Lymphocytes % 21.4 Monocytes % 8.3 Eosinophils % 8.8 H Basophils % 0.9 PTT (Actin FS) Sodium 144 Potassium 4.4 Chloride 108 H Carbon Dioxide 27 Anion Gap 9 BUN 12 Creatinine 0.7 Creat Clearance w eGFR > 60 Random Glucose 77 Calcium 9.0 Total Bilirubin 0.7 AST 21 ALT 19 Alkaline Phosphatase 44 L Troponin I 0.06 H Total Protein 6.2 L Albumin 3.4 HOSPITAL COURSE: Date of Admission:03/23/17 Date of Discharge: 03/26/17 Patient has decided to leave the hospital against medical advice. The patient is competent and understands the risk of leaving including sudden , permanent disability, syncope, CVA, TIA, worsening mental status. I spoke to the patient in detail and she has had an opportunity to ask questions about her condition. She is seeking a second opinion with a neurosurgeon in [place] and has an appointment today at 10:00 a.m. I stressed the importance of an inpatient cardiac workup as well as this cannot be fully excluded as the cause of her syncope. She is refusing further cardiac workup @ [facility] States she will consider it as an outpatient. The patient has been informed that she may return for care at anytime. The importance of continuing Keppra BID to prevent seizures has been discussed and the medication has been called into her pharmacy ([facility]). She has Lipitor @ home. Minutes to complete discharge: 45 Discharge Summary Reason For Visit: SYNCOPE Current Active Problems Dehydration (Acute) Elevated troponin I level (Acute) HTN (hypertension) (Acute) Hypercholesteremia (Acute) Syncopal episodes (Acute) Condition: Guarded - Instructions Diet, Activity, Other Instructions: Patient is leaving AMA, see discharge summary. Disposition: AGAINST MEDICAL ADVICE - Home Medications Comprehensive Discharge Medication List: Ambulatory Orders Atorvastatin Ca [Lipitor] 20 mg PO HS 03/23/17 Benazepril/Hydrochlorothiazide [Benazepril-Hctz 20-12.5 mg Tab] 1 each PO HS 07/30 Aspirin Coated [Ecotrin -] 81 mg PO DAILY #30 tab 03/26/17 Atorvastatin Ca [Lipitor] 40 mg PO HS #0 tablet 03/26/17 Levetiracetam [Keppra -] 500 mg PO BID #60 tablet 03/26/17 This patient is new to me today: Yes Date on this admission: 03/26/17 Emergency Visit: No Critical Care patient: No - Discharge Referral Referred to [facility] No
== END 2017-03-26 08:55 | disposition left against medical advice (07) ==
LOC: JER 13:37 → JERBED 16:34 → UNDOADMOB 17:21 → J4W 03-24 15:21
PROVIDERS: ADMIT Internal Medicine; ATTEND Nurse Practitioner Family
PROC: 3E033GC Introduction of Other Therapeutic Substance into Peripheral Vein, Percutaneous Approach (ICD-10-PCS; principal; 2017-03-23)
PROC: 3E013GC Introduction of Other Therapeutic Substance into Subcutaneous Tissue, Percutaneous Approach (ICD-10-PCS; 2017-03-23)
DX: R55 Syncope and collapse (principal); R74.8 Abnormal levels of other serum enzymes; E86.0 Dehydration; I10 Essential (primary) hypertension; E78.5 Hyperlipidemia, unspecified; Z87.891 Personal history of nicotine dependence; G93.9 Disorder of brain, unspecified; I67.1 Cerebral aneurysm, nonruptured; Z79.82 Long term (current) use of aspirin
CPT/HCPCS: 36415; 70450-TC; 70544-TC; 70551-TC; 70552-TC; 71020-TC; 71275-TC; 74177-TC; 80053; 80061; 82550; 83036; 83721; 83735; 84443; 84484; 85025; 85610; 85730; 93005; 93010; 93306-TC; 93880-TC; 99285-25; G0378; J1644; Q9967